=== PATIENT | female | born 1965 | race Two or more races ===

== ENCOUNTER 2018-10-26 12:51 | Emergency (ER) | payer OTHER ==
[2018-10-26 13:17] VITALS: BP 124/72; PULSE 89; TEMP 98.1; BMI 27.4
--- NOTE | 2018-10-26 13:17 | PDOC ---
Rapid Medical Evaluation Time Seen by Provider: 10/26/18 13:12 Medical Evaluation: 10/26/18 13:16 Patient had brief in-person examination in triage cc: requesting ultrasound due to " waves and jumping sensation in stomach" Denies pain HPI: alert and oriented even and unlabored breathing abdomen soft orders: none This patient will proceed to ed for further evaluation Discharge Disposition - Diagnosis Abdominal discomfort - Referrals - Patient Instructions - Post Discharge Activity
[2018-10-26 15:02] LABS: EPI CELLS 1.3 /HPF (0-5/HPF); HYALINE CASTS 0 /lpf (0-8); PH,URINE 7.5 (5.0-8.0); URINE APPEARANCE CLEAR; URINE BACTERIA 5.4 /hpf (NEGATIVE); URINE BILIRUBIN NEGATIVE (NEGATIVE); URINE COLOR YELLOW; URINE GLUCOSE (UA) NEGATIVE (NEGATIVE); URINE KETONE NEGATIVE (NEGATIVE); URINE LEUK ESTERASE TRACE (NEGATIVE); URINE NITRITE NEGATIVE (NEGATIVE); URINE PROTEIN NEGATIVE (NEGATIVE); URINE RBC 2 /hpf (0-4); URINE UROBILINOGEN 0.2 mg/dL (0.2-1.0); URINE WBC 1 /hpf (0-5)
--- NOTE | 2018-10-26 15:12 | PDOC ---
History of Present Illness - General Chief Complaint: Pain Stated Complaint: PELVIC PAIN Time Seen by Provider: 10/26/18 13:12 History Source: Patient Exam Limitations: No Limitations - History of Present Illness Initial Comments: 10/26/18 15:07 53F with no PMH who presents to the ER with her daughter because she believes she may be and she is also requesting an ultrasound. The patient states that whenever she sets a water bottle on her stomach, it moves and this has never happened before. Her daughter believes she is and the patient is unsure if she can be , although she states that she has not had her period in a year due to menopause. She denies dysuria, hematuria, vaginal discharge, abdominal pain, fever, chills, nausea or vomiting. Past History - Past Medical History Allergies/Adverse Reactions: Allergies Allergy/AdvReac Type Severity Reaction Status Date / Time No Known Allergies Allergy Verified 10/26/18 14:05 Home Medications: Ambulatory Orders NK [No Known Home Medication] 10/26/18 COPD: No - Suicide/Smoking/Psychosocial Hx Smoking History: Never smoked Hx Alcohol Use: No Drug/Substance Use Hx: No Review of Systems - Review of Systems Able to Perform ROS?: Yes Is the patient limited [place] proficient: No Constitutional: No: Chills, Fever Respiratory: No: Shortness of Breath Cardiac (ROS): No: Chest Pain ABD/GI: Yes: Other (No abd pain; admits to "something" in stomach). No: Nausea , Vomiting : No: Burning, Dysuria, Discharge, Pain, Urgency Neurological: No: Numbness, Tingling, Weakness *Physical Exam - Vital Signs Last Vital Signs Temp Pulse Resp BP Pulse Ox 98.1 F 89 19 124/72 98 10/26/18 13:12 10/26/18 13:12 10/26/18 13:12 10/26/18 13:12 10/26/18 13:12 - Physical Exam General Appearance: Yes: Nourished, Appropriately Dressed HEENT: positive: Normal Voice, Hearing Grossly Normal Respiratory/Chest: positive: Lungs Clear, Normal Breath Sounds. negative: Chest Tender Cardiovascular: positive: Regular Rhythm, Regular Rate, S1, S2. negative: Diastolic Murmur, Systolic Murmur Gastrointestinal/Abdominal: positive: Flat, Soft. negative: Tender, Rebound, Tenderness Musculoskeletal: negative: CVA Tenderness, CVA Tenderness (R), CVA Tenderness (L ) Extremity: positive: Normal Inspection, Normal Range of Motion. negative: Tender Integumentary: positive: Normal Color, Dry, Warm Neurologic: positive: Fully Oriented, Alert, Normal Mood/Affect ED Treatment Course - ADDITIONAL ORDERS Additional order review: Laboratory Results 10/26/18 14:41 Urine Color Yellow Urine Appearance Clear Urine pH 7.5 Ur Specific [place] 1.009 L Urine Protein Negative Urine Glucose (UA) Negative Urine Ketones Negative Urine Blood Negative Urine Nitrite Negative Urine Bilirubin Negative Urine Urobilinogen 0.2 Ur Leukocyte Esterase Trace Urine WBC (Auto) 1 Urine RBC (Auto) 2 Urine Casts (Auto) 0 U Epithel Cells (Auto) 1.3 Urine Bacteria (Auto) 5.4 Medical Decision Making - Medical Decision Making 10/26/18 15:11 53F with no PMH who presents with a request for an ultrasound and test. Upreg at home negative. POCUS shows no gross abnormalities. Will check ua and upreg and reassess. 10/26/18 15:23 UA shows trace LE, however with absence of symptoms, will not treat and will f/ u culture. Pt aware. Will d/c with PCP f/u. *DC/Admit/Observation/Transfer Diagnosis at time of Disposition: Abdominal discomfort - Discharge Dispostion Disposition: HOME Condition at time of disposition: Stable Decision to Admit order: No - Referrals Referrals: Lakihsa Mendez MD [Staff Physician] - - Patient Instructions Printed Discharge Instructions: DI for Abdominal Pain-Adult Additional Instructions: Your ER visit is not complete until your follow up with your primary care physician. Please follow up with your primary care physician in 1-2 days. Please return to the ER if you have any signs or symptoms of chest pain, shortness of breath, uncontrollable fever, chills, nausea, vomiting, numbness, tingling, or weakness in any part of your body, changes in vision, or slurred speech. Please return to the ER if symptoms persist, worsen, or new symptoms arise. - Post Discharge Activity
--- NOTE | 2018-10-26 15:26 | PDOC ---
Documentation entered by Gonzalez Weiner SCRIBE, acting as scribe for Arturo Blackburn MD. Arturo Blackburn MD: This documentation has been prepared by the Regine pratt Elijah, SCRIBE, under my direction and personally reviewed by me in its entirety. I confirm that the documentation accurately reflects all work, treatment, procedures, and medical decision making performed by me. Attending Attestation - Resident Resident Name: Emir Jesus - ED Attending Attestation I have performed the following: I have examined & evaluated the patient, The case was reviewed & discussed with the resident, I agree w/resident's findings & plan - HPI HPI: 10/26/18 15:27 Reviewed HPI
[2018-10-26] MEDS ORDERED: TOBRAMYCIN 0.3% OPHTH SOLN 5 ML BOTTLE ONE (15:53)
== END 2018-10-26 16:10 | disposition home or self-care (01) ==
LOC: JER 12:51
PROC: BW40ZZZ Ultrasonography of Abdomen (ICD-10-PCS; principal; 2018-10-26)
DX: R10.9 Unspecified abdominal pain (principal)
CPT/HCPCS: 76705-TC; 81003; 84703; 87086; 99282-25